=== PATIENT | female | born 1985 | race Caucasian/White ===

== ENCOUNTER 2017-02-13 10:33 | Emergency (ER) | payer SELFPAY ==
--- NOTE | 2017-02-13 11:28 | EDM.PDOC ---
ED HPI GENERAL MEDICAL PROBLEM - General Chief Complaint: ENT Problem Stated Complaint: SORE THROAT Time Seen by Provider: 02/13/17 11:03 Source of Information: Reports: Patient History Limitations: Reports: No Limitations - History of Present Illness INITIAL COMMENTS - FREE TEXT/NARRATIVE: 31-year-old female presents for evaluation and treatment of a sore throat. Patient reports the sore throat has been present for the last 6 days. Reports that she has a constant sore throat. Reports odynophagia. She has not appreciated any fevers, nausea, ear pain, abdominal pain, vomiting or diarrhea. Reports that she did have chills a few nights ago. She has also been more fatigued than normal. She has also been coughing for the last 1-2 days. She states that she did lose her sense of taste and smell for a few days as well. She tried [id number] cough syrup, cough drops and tea without any symptom relief. Reports that she did have a cold about 2 weeks ago but her symptoms seemed to resolve. Reports her daughter was with similar symptoms but she recovered after antibiotics. She was on antibiotics for an ear infection. Patient did not get a flu shot this year. Treatments MDM SR: Reports: Other Medication(s) Other Treatments MDM SR: Cough drops, cold medication Throat Pain Score (Numeric/FACES): 8 - Related Data Allergies Allergy/AdvReac Type Severity Reaction Status Date / Time No Known Allergies Allergy Verified 02/13/17 10:42 Home Meds: Home Meds Amoxicillin 500 mg PO BID #20 tab 02/13/17 [Rx] Lidocaine HCl [Lidocaine HCl Viscous] 300 mg PO Q4HR PRN #1 bottle 02/13/17 [Rx] Past Medical History - Past Health History Medical/Surgical History: Denies Medical/Surgical History Social & Family History - Tobacco Use Smoking Status *Q: Never Smoker Years of Tobacco use: 8 - Caffeine Use Caffeine Use: Reports: Coffee - Alcohol Use Days Per Week of Alcohol Use: 1 Number of Drinks Per Day: 2 Total Drinks Per Week: 2 - Recreational Drug Use Recreational Drug Use: No ED ROS ENT - Review of Systems Review Of Systems: See Below Constitutional: Reports: Chills, Fatigue. Denies: Fever HEENT: Reports: Throat Pain. Denies: Ear Pain Respiratory: Reports: Cough GI/Abdominal: Denies: Abdominal Pain, Diarrhea, Nausea, Vomiting ED EXAM, ENT - Physical Exam Exam: See Below Exam Limited By: No Limitations General Appearance: Alert, WD/WN, No Apparent Distress Eye Exam: Bilateral Eye: Normal Inspection Ears: Normal External Exam, Normal Canal, Hearing Grossly Normal, Normal TMs Nose: Normal Inspection Mouth/Throat: Normal Inspection, Normal Gums, Normal Lips, Normal Oropharynx, Normal Teeth. No: Pharyngeal Erythema, Throat Swelling, Tongue Swelling, Tonsillar Erythema, Tonsillar Exudates, Uvular Deviation Neck: Normal Inspection, Supple, Lymphadenopathy (L), Lymphadenopathy (R) Respiratory/Chest: No Respiratory Distress, Lungs Clear, Normal Breath Sounds Cardiovascular: Normal Peripheral Pulses, Regular Rate, Rhythm, No Murmur GI/Abdominal: Normal Bowel Sounds, Soft, Non-Tender Neurological: Alert, Oriented, Normal Cognition Psychiatric: Normal Affect, Normal Mood Skin: Warm, Dry, Normal Color Course - Vital Signs Last Recorded V/S: Last Vital Signs Temp 37.0 C 02/13/17 10:40 Pulse 89 02/13/17 10:40 Resp 16 02/13/17 10:40 BP 158/94 H 02/13/17 10:40 Pulse Ox 99 02/13/17 10:40 - Orders/Labs/Meds Orders: Active Orders 24 hr Category Date Time Status CULTURE STREP A CONFIRMATION [] Stat Lab 02/13/17 11:12 Results STREP SCRN A RAPID W CULT CONF [] Stat Lab 02/13/17 11:10 Uncollected - Re-Assessments/Exams Free Text/Narrative Re-Assessment/Exam: 02/13/17 11:58 Rapid strep returns negative. Influenza was negative. Discussed the results with patient. I'll offered her mono testing however, I do not feel she has mono. She would like to try an antibiotic. I also get her vicious lidocaine for the pain. Discharge instructions as documented. Departure - Departure Time of Disposition: 11:59 Disposition: Home, Self-Care 01 Condition: Good Clinical Impression: Pharyngitis - Discharge Information Prescriptions: Lidocaine HCl [Lidocaine HCl Viscous] 300 mg PO Q4HR PRN #1 bottle PRN Reason: Pain Amoxicillin 500 mg PO BID #20 tab Referrals: PCP,None [Primary Care Provider] - Forms: ED Department Discharge Additional Instructions: Amoxicillin 1 tab twice a day for 10 days. Take this with food. Also recommend starting a probiotic or yogurt to help prevent upset stomach, nausea and diarrhea. Recommend starting yuaf-[id number] antihistamine such as Claritin or Zyrtec to help with postnasal drip. May use the viscous lidocaine every 4 hours as needed for sore throat. Gargle 15 mls, may then spit or swallow. Follow-up with your family medicine provided your symptoms persist beyond 2 weeks. Please return to the ER if your symptoms change or worsen. - My Orders Last 24 Hours: My Active Orders 02/13/17 11:10 STREP SCRN A RAPID W CULT CONF [RM] Stat 02/13/17 11:12 CULTURE STREP A CONFIRMATION [] Stat - Assessment/Plan Last 24 Hours: My Active Orders 02/13/17 11:10 STREP SCRN A RAPID W CULT CONF [RM] Stat 02/13/17 11:12 CULTURE STREP A CONFIRMATION [RM] Stat
== END 2017-02-13 12:12 | disposition home or self-care (01) ==
LOC: JD.ED 10:33
DX: J02.9 Acute pharyngitis, unspecified (principal)
CPT/HCPCS: 87081; 87430; 87804; 99283

== ENCOUNTER 2017-03-21 15:50 | Emergency (ER) | payer SELFPAY ==
[2017-03-21] MEDS ORDERED: Lidocaine 1% 50 ML MDV INJECT ONE (16:46)
[2017-03-21] MEDS ORDERED: Diphtheria,Pertussis(Acell),Tetanus Vaccine 0.5 ML SDV IM ONE (16:46)
--- NOTE | 2017-03-21 17:43 | EDM.PDOC ---
ED HPI GENERAL MEDICAL PROBLEM - General Chief Complaint: Laceration Stated Complaint: R RING FINGER LACERATION Time Seen by Provider: 03/21/17 16:31 Source of Information: Reports: Patient, RN Notes Reviewed - History of Present Illness INITIAL COMMENTS - FREE TEXT/NARRATIVE: 31-year-old female suffered laceration injury to outer distal aspect right ring finger. She is doing dishes, accidentally cut the finger with a sharp knife. Moderate bleeding at home. Unsure of last tetanus immunization but does know it has "been a long time". - Related Data Allergies Allergy/AdvReac Type Severity Reaction Status Date / Time No Known Allergies Allergy Verified 03/21/17 16:18 Home Meds: Home Meds Omeprazole Magnesium [Prilosec Otc] 20 mg PO DAILY PRN 03/21/17 [History] Past Medical History - Past Health History Medical/Surgical History: Denies Medical/Surgical History [employer] History: Reports: Other OB/BYN History: - Infectious Disease History Infectious Disease History: Reports: Chicken Pox Social & Family History - Tobacco Use Smoking Status *Q: Former Smoker Years of Tobacco use: 10 Packs/Tins Daily: 0.5 Used Tobacco, but Quit: Yes Month Tobacco Last Used: 2017 - Caffeine Use Caffeine Use: Reports: Coffee, Energy Drinks, Soda, Tea - Alcohol Use Days Per Week of Alcohol Use: 1 Number of Drinks Per Day: 2 Total Drinks Per Week: 2 - Recreational Drug Use Recreational Drug Use: No ED ROS GENERAL - Review of Systems Review Of Systems: See Below Constitutional: Reports: No Symptoms HEENT: Reports: No Symptoms Respiratory: Reports: No Symptoms Cardiovascular: Denies: Chest Pain GI/Abdominal: Denies: Abdominal Pain, Nausea, Vomiting Musculoskeletal: Reports: Other (Laceration injury distal ring finger) Neurological: Denies: Numbness, Tingling ED EXAM, SKIN/RASH Exam: See Below General Appearance: Alert, No Apparent Distress Head: Atraumatic Neck: Supple Respiratory/Chest: No Respiratory Distress Extremities: Other (1.5 cm flap laceration injury distal ring finger of right hand, no active bleeding) Neurological: No Motor/Sensory Deficits Skin: Warm, Dry ED SKIN PROCEDURES - Laceration/Wound Repair Right Distal Finger Lac/Wound length In cm: 1.5 Distal NVT: Neuro & Vascular Intact Anesthetic Type: Local Local Anesthesia - Lidocaine (Xylocaine): 1% Plain Skin Prep: Saline Suture Size: 4-0 # of Sutures: 4 Course - Vital Signs Last Recorded V/S: Last Vital Signs Temp 98.7 F 03/21/17 16:09 Pulse 86 03/21/17 16:09 Resp 14 03/21/17 16:09 BP 136/87 03/21/17 16:09 Pulse Ox 99 03/21/17 16:09 - Orders/Labs/Meds Orders: Active Orders 24 hr Category Date Time Status Vaccines to be Administered [RC] PER UNIT ROUTINE Care 03/21/17 16:46 Active Meds: Medications Discontinued Medications Generic Name Dose Route Start Last Admin Trade Name Freq PRN Reason Stop Dose Admin Diphtheria/Tetanus/Acell Pertussis 0.5 ml 03/21/17 16:46 03/21/17 16:51 Adacel IM 03/21/17 16:47 0.5 ml .ONCE ONE Administration Lidocaine HCl 50 ml 03/21/17 16:46 03/21/17 16:51 Xylocaine 1% INJECT 03/21/17 16:47 50 ml ONETIME ONE Administration Departure - Departure Time of Disposition: 17:41 Disposition: Home, Self-Care 01 Condition: Fair Clinical Impression: Finger laceration Qualifiers: Encounter type: initial encounter Finger: ring finger Damage to nail status: without damage Foreign body presence: without foreign body Laterality: right Qualified Code(s): S61.214A - Laceration without foreign body of right ring finger without damage to nail, initial encounter - Discharge Information Instructions: Laceration Care, Adult Referrals: PCP,None [Primary Care Provider] - Forms: ED Department Discharge Additional Instructions: Laceration care instructions, stitches out in about 10 days, there is no charge if you have those taken out at her [facility], call [phone] for appointment. Have rechecked any sign of infection. Leave our Tubegauz dressing on for about 2 days, than apply antibiotic ointment and Band-Aid protection 2-3 times daily - My Orders Last 24 Hours: My Active Orders 03/21/17 16:46 Vaccines to be Administered [RC] PER UNIT ROUTINE - Assessment/Plan Last 24 Hours: My Active Orders 03/21/17 16:46 Vaccines to be Administered [RC] PER UNIT ROUTINE
== END 2017-03-21 17:55 | disposition home or self-care (01) ==
LOC: JD.ED 15:50
DX: S61.214A Laceration without foreign body of right ring finger without damage to nail, initial encounter (principal); Z79.899 Other long term (current) drug therapy; Z87.891 Personal history of nicotine dependence; Z23 Encounter for immunization; W26.0XXA Contact with knife, initial encounter; Y93.89 Activity, other specified; Y92.009 Unspecified place in unspecified non-institutional (private) residence as the place of occurrence of the external cause
CPT/HCPCS: 12001; 90471; 90715; 99283-25

== ENCOUNTER 2018-11-23 16:39 | Emergency (ER) | payer SELFPAY ==
[2018-11-23] MEDS ORDERED: Albuterol 0.083% 2.5 MG/3 ML Neb Soln NEB ONE (17:25)
--- NOTE | 2018-11-23 17:40 | EDM.PDOC ---
<Kasandra Leigh - Last Filed: 11/23/18 17:26> ED HPI GENERAL MEDICAL PROBLEM - General Chief Complaint: Skin Complaint Stated Complaint: CHEST CONGESTION,COUGH AND HIVES Time Seen by Provider: 11/23/18 17:02 Source of Information: Reports: Patient History Limitations: Reports: No Limitations - History of Present Illness INITIAL COMMENTS - FREE TEXT/NARRATIVE: Roberta is a 33 yo female who presents today c/o chest congestion, productive cough and hives. She states her cough began roughly two weeks ago. Most of the time her cough is dry but she feels like she constantly has mucus she needs to get out. When she does gave a productive cough, the sputum is green in color. The pt also states she began having night sweats around the same time as the cough started, She has no history of any lung disease and she quit smoking two years ago. She has taken some tylenol cold medication but it gave her no relief of her cough. She denies any other cold-like symptoms such as runny or stuffy nose, headache, sore throat, fever, nausea and vomiting. This morning she woke up with hives covering her entire body that continued to itch and get worse throughout the day until she was able to come home and take a shower. Since showering the hives have began to go away except for a small area on the extensor surface of her elbows bilaterally. She denies any changes in medications, soaps, lotions or pets. Her only known allergy is to febreeze which she does not believe she came in contact with. - Related Data Allergies Allergy/AdvReac Type Severity Reaction Status Date / Time No Known Allergies Allergy Verified 11/23/18 16:54 Home Meds: Home Meds Omeprazole Magnesium [Prilosec Otc] 20 mg PO DAILY PRN 03/21/17 [History] Past Medical History - Past Health History Medical/Surgical History: Denies Medical/Surgical History [employer] History: Reports: Other [employer] History: - Infectious Disease History Infectious Disease History: Reports: Chicken Pox - Past Surgical History Female Surgical History: Reports: Section Social & Family History - Tobacco Use Smoking Status *Q: Former Smoker Used Tobacco, but Quit: Yes Month/Year Tobacco Last Used: 2016 - Caffeine Use Caffeine Use: Reports: Coffee - Recreational Drug Use Recreational Drug Use: No Course - Vital Signs Last Recorded V/S: Last Vital Signs Temp 97.6 F 11/23/18 16:52 Pulse 100 11/23/18 16:52 Resp 16 11/23/18 16:52 BP 172/103 H 11/23/18 16:52 Pulse Ox 98 11/23/18 17:39 - Orders/Labs/Meds Orders: Active Orders 24 hr Category Date Time Status RT Aerosol Therapy [RC] ASDIRECTED Care 11/23/18 17:25 Active Chest 2V [CR] Stat Exams 11/23/18 17:23 Taken Labs: Laboratory Tests 11/23/18 Range/Units 17:46 WBC 10.50 H (3.98-10.04) K/mm3 RBC 5.37 H (3.98-5.22) M/mm3 Hgb 14.5 (11.2-15.7) gm/dl Hct 43.2 (34.1-44.9) % MCV 80.4 D (79.4-94.8) fl MCH 27.0 (25.6-32.2) pg MCHC 33.6 (32.2-35.5) g/dl RDW Std Deviation 40.9 (36.4-46.3) fL Plt Count 384 H D (182-369) K/mm3 MPV 10.2 (9.4-12.3) fl Neut % (Auto) 62.5 (34.0-71.1) % Lymph % (Auto) 29.0 (19.3-51.7) % [place] % (Auto) 6.9 (4.7-12.5) % Eos % (Auto) 1.0 (0.7-5.8) Baso % (Auto) 0.4 (0.1-1.2) % Neut # (Auto) 6.58 H (1.56-6.13) K/mm3 Lymph # (Auto) 3.04 (1.18-3.74) K/mm3 [place] # (Auto) 0.72 H (0.24-0.36) K/mm3 Eos # (Auto) 0.10 (0.04-0.36) K/mm3 Baso # (Auto) 0.04 (0.01-0.08) K/mm3 Meds: Medications Discontinued Medications Generic Name Dose Route Start Last Admin Trade Name Freq PRN Reason Stop Dose Admin Albuterol 2.5 mg 11/23/18 17:25 11/23/18 17:39 Proventil Neb Soln NEB 11/23/18 17:26 2.5 mg ONETIME ONE Administration Departure - Departure Disposition: Home, Self-Care 01 Clinical Impression: Cough in adult - Discharge Information Instructions: Cool Mist Vaporizer, Cough, Adult, [id number] Referrals: PCP,None [Primary Care Provider] - Forms: ED Department Discharge Additional Instructions: You have been evaluated in the ED today for your cold like symptoms, cough, sore throat. This is likely a viral illness in etiology. Please increase your fluid intake. Get plenty of rest as well. You should feel better in a few days. Recommend that you take some [id number]-[id number] nasal decongestants, cough/cold remedies to combat this. Medicines like NyQuil, DayQuil, phenylephrine and other decongestants Mucinex (guaifenesin) are adequate. If your symptoms are not better in one week's time recommend that you follow up in a clinic or your primary care provider. Our [facility] clinic number is , the [facility] is [phone]. Any family practice provider would be able to provide you with the services. Please return to the ED if your symptoms change or worsen. - My Orders Last 24 Hours: My Active Orders 11/23/18 17:23 Chest 2V [CR] Stat 11/23/18 17:25 RT Aerosol Therapy [RC] ASDIRECTED - Assessment/Plan Last 24 Hours: My Active Orders 11/23/18 17:23 Chest 2V [CR] Stat 11/23/18 17:25 RT Aerosol Therapy [RC] ASDIRECTED <Joycelyn Smith - Last Filed: 11/23/18 19:43> ED HPI GENERAL MEDICAL PROBLEM - History of Present Illness INITIAL COMMENTS - FREE TEXT/NARRATIVE: I have read and reviewed the student's HPI and examined the patient and agree with EDGARD Garcia-student. ED ROS GENERAL - Review of Systems Review Of Systems: See Below Constitutional: Denies: Fever, Chills Respiratory: Reports: Cough, Sputum. Denies: Shortness of Breath, Wheezing Cardiovascular: Denies: Chest Pain GI/Abdominal: Denies: Diarrhea, Nausea, Vomiting ED EXAM, SKIN/RASH Exam: See Below Exam Limited By: No Limitations General Appearance: Alert, WD/WN, No Apparent Distress Respiratory/Chest: No Respiratory Distress, Lungs Clear, Normal Breath Sounds, No Accessory Muscle Use, Chest Non-Tender Cardiovascular: Normal Peripheral Pulses, Regular Rate, Rhythm, No Murmur GI/Abdominal: Normal Bowel Sounds, Soft, Non-Tender, No Distention, No Mass Extremities: Normal Inspection, Normal Capillary Refill Neurological: Alert, Oriented, Normal Cognition, No Motor/Sensory Deficits Psychiatric: Normal Affect, Normal Mood Skin: Warm, Dry, Intact, Normal Color Location, Skin: Upper Extremity, Right (extensor surface of Right elbow), Upper Extremity, Left (extensor surface of Left elbow) Characteristics: Papular (vesicular, itchy) Course - Re-Assessments/Exams Free Text/Narrative Re-Assessment/Exam: 11/23/18 17:45 Patient presents to the ED for the evaluation of a cough 2 weeks. I ordered an albuterol nebulizer, chest x-ray, and a CBC for initial evaluation. The CBC demonstrated a modestly elevated white count of 10.5. Patient is not complaining of any sort of fevers or chills. The chest x-ray shows no sign of any sort of consolidation or pneumonia at this time. This was reviewed by Dr. Cheney and myself. Will reassess the patient's response to the albuterol nebulizer but will likely discharge her home with general recommendations. As for her hives, she wishes to take some Benadryl at home and does not want treatment for these at this visit. 11/23/18 18:19 Patient was reassessed at bedside, and states she feels mildly better after the albuterol nebulizer, she feels as if her chest was "opened up"and that her cough is a little bit more productive. At this time everything is pointing to a viral illness in nature. We'll discharge her home with general recommendations. I did urge her to get a primary care physician for further management. Departure - Departure Time of Disposition: 18:20 Condition: Fair - Discharge Information *PRESCRIPTION DRUG MONITORING PROGRAM REVIEWED*: No *COPY OF PRESCRIPTION DRUG MONITORING REPORT IN PATIENT OZ: No
--- NOTE | 2018-11-24 07:00 | CR ---
Chest: Two views of the chest were obtained. Comparison: Prior chest x-ray of 08/21/15. Heart size and mediastinum are within normal limits. Lungs are clear with no acute parenchymal change. Bony structures appear within normal limits. Impression: 1. Nothing acute is appreciated on two-view chest x-ray. Diagnostic code #1
== END 2018-11-23 18:35 | disposition home or self-care (01) ==
LOC: JD.ED 16:39
DX: R05 Cough (principal); Z87.891 Personal history of nicotine dependence
CPT/HCPCS: 36415; 71046; 71046-26; 85025; 94640; 99282; 99284-25

== ENCOUNTER 2021-03-11 15:20 | Emergency (ER) | payer OTHER ==
[2021-03-11] MEDS ORDERED: Ondansetron 4 MG Tab.DIS PO ONE (15:52)
[2021-03-11] MEDS ORDERED: Meclizine 12.5 MG Tab PO ONE (16:32)
== END 2021-03-11 18:00 | disposition home or self-care (01) ==
LOC: JD.ED 15:20
DX: U07.1 COVID-19 (principal); I10 Essential (primary) hypertension; K21.9 Gastro-esophageal reflux disease without esophagitis; Z87.891 Personal history of nicotine dependence; Z79.899 Other long term (current) drug therapy
CPT/HCPCS: 71045; 93005; 99283; A9270